=== PATIENT | male | born 1950 | race Caucasian/White ===

== ENCOUNTER 2018-04-21 15:52 | Inpatient (IN) | payer OTHER ==
[~2018-04-21] VITALS: Ht 180.3 cm; Wt 72.6 kg
[2018-04-21] MEDS ORDERED: POLY17PO4 PO (16:09)
[2018-04-21] MEDS ORDERED: FINA5TAB11 PO (16:09)
[2018-04-21] MEDS ORDERED: TAMS-3 PO (16:09)
[2018-04-21] MEDS ORDERED: CHOL10005 PO (16:09)
[2018-04-21] MEDS ORDERED: MULT1TAB73 PO (16:09)
[2018-04-21 16:17] LABS: BASOPHILS % (AUTO) 0.2 % (0.0-2.0); HEMATOCRIT 48.7 % (36.7-47.1); HEMOGLOBIN 16.5 g/dL (12.5-16.3); LYMPHOCYTES # (AUTO) 0.2 K/uL (20.0-40.0); LYMPHOCYTES % (AUTO) 3.4 % (20.5-51.5); MEAN CORPUSCULAR HGB CONC 34 g/dL (32.5-36.3); MEAN CORPUSCULAR VOLUME 91.2 fL (73.0-96.2); MONOCYTES % (AUTO) 0.6 % (0.0-11.0); NEUTROPHILS # (AUTO) 6.7 K/uL (1.8-8.9); NEUTROPHILS % (AUTO) 95.8 % (38.5-71.5); PLATELET COUNT (AUTO) 184 K/uL (152-348); RED BLOOD CELL COUNT(AUTO) 5.34 MIL/uL (4.06-5.63)
[2018-04-21 16:22] LABS: POTASSIUM 3.8 mmol/L (3.5-5.1)
[2018-04-21 16:36] LABS: *BILIRUBIN,URIN NEGATIVE (NEGATIVE); *BLOOD, URINE 3+ (NEGATIVE); *COLOR,URINE RED (YELLOW); *KETONES,URINE 1+ (NEGATIVE); *PROTEIN,URINE 3+ (NEGATIVE); *UROBILINOGEN,URINE 0.2 E.U./dl (NORMAL); LEUKOCYTE ESTERASE ,URINE TRACE (NEGATIVE); NITRITE, URINE NEGATIVE (NEGATIVE); UGLUCOSE NEGATIVE (NEGATIVE)
[2018-04-21 16:38] LABS: *CLARITY,URINE BLOODY (CLEAR)
[2018-04-21 16:42] LABS: RBC,URINE TNTC /HPF (0-3)
[2018-04-21 16:43] LABS: MUCUS,URINE MODERATE /LPF (0-FEW)
--- NOTE | 2018-04-21 16:50 | NUR ---
spoke with DYLLAN Tolentino via telephone and pt to be admitted to m/s.
--- NOTE | 2018-04-21 17:17 | NUR ---
Pt trans to m/s floor, NAD noted.
--- NOTE | 2018-04-21 17:30 | NUR ---
ADMITTED FROM [facility] VIA ER A 68 YO MALE STATUS POST TURP. ADM DX HEMATURIA. AWAKE ALERT AND ORIENTED X3 NO SS OF PAIN OR DISTRESS WITH 3 WAY JENSEN CATHETER AND CONTINUOUS BLADDER IRRIGATION ON GOING DRAINING BRIGHT RED WITH NO CLOTS NOTED. ROUTINE ADM ASSESSMENT INITIATED, DYLLAN HIGUERA NOTIFIED OF ADMISSION WITH ORDERS
[2018-04-21] MEDS ORDERED: ACETAMINOPHEN 325 MG TABLET PO PRN (18:15)
[2018-04-21] MEDS ORDERED: ZOLPIDEM 5 MG TABLET PO PRN (18:15)
[2018-04-21] MEDS ORDERED: ONDANSETRON 4 MG/2 ML VIAL IV PRN (18:15)
[2018-04-21] MEDS ORDERED: HYDROCODONE/APAP 5-325MG TABLET PO PRN (18:15)
[2018-04-21 20:00] VITALS: BP 119/62
[2018-04-21] MEDS ORDERED: CEFTRIAXONE 1 G in IV DEXTROSE 5% 50 ML IV SCH (21:00)
[2018-04-21] MEDS ORDERED: CEFTRIAXONE 1 G VIAL ONE (22:08)
--- NOTE | 2018-04-21 22:55 | NUR ---
Received Pt care, A+Ox3, VS stable. Remains on continuous bladder irrigation, NS 3L bag replaced and infusing. Urine appears lorelei in color, Pt denies any discomfort or pain. Saline lock noted to (L) hand, line patent. Compliant and cooperative, in no acute distress at this time, will continue to monitor.
[2018-04-22 05:03] VITALS: BP 98/66
--- NOTE | 2018-04-22 05:51 | NUR ---
Remains on continuous bladder irrigation, output 4L total for the shift, urine now light pink in color, no clots noted. Denies pain, VS stable, breathing even and unlabored. F/C in place and draining freely. UA positive for UTI, Rocephin 1G IV started at 2200. 18g IV to (L) hand intact and patent, TKO. Right-sided weakness noted secondary to cerebral palsy, minimal assist required. In no acute physical distress. Care to be endorsed to day shift nurse.
[2018-04-22 06:38] LABS: CREATININE 0.8 mg/dL (0.6-1.3); MAGNESIUM 1.9 mg/dL (1.8-2.4); PHOSPHOROUS 3.4 mg/dL (2.5-4.9)
--- NOTE | 2018-04-22 07:30 | NUR ---
AWAKE ALERT AND ORIENTED X3 NO SS OF PAIN OR DISTRESS. CONTINUE WITH CBI URINE OUTPUT IS NOW VERY LIGHT PINK NO GROSSS HEMATURIA OR CLOTS. AFEBRILE
[2018-04-22 07:59] LABS: BASOPHILS % (AUTO) 0.3 % (0.0-2.0); HEMATOCRIT 43.3 % (36.7-47.1); HEMOGLOBIN 14.7 g/dL (12.5-16.3); LYMPHOCYTES # (AUTO) 1.1 K/uL (20.0-40.0); LYMPHOCYTES % (AUTO) 10.1 % (20.5-51.5); MEAN CORPUSCULAR HEMOGLOBIN 30.9 uug (23.8-33.4); MEAN CORPUSCULAR HGB CONC 34 g/dL (32.5-36.3); MEAN CORPUSCULAR VOLUME 90.9 fL (73.0-96.2); MONOCYTES # (AUTO) 0.7 K/uL (2.0-10.0); MONOCYTES % (AUTO) 6.4 % (0.0-11.0); NEUTROPHILS # (AUTO) 9.3 K/uL (1.8-8.9); NEUTROPHILS % (AUTO) 83.2 % (38.5-71.5); PLATELET COUNT (AUTO) 182 K/uL (152-348); RED BLOOD CELL COUNT(AUTO) 4.77 MIL/uL (4.06-5.63); WHITE BLOOD COUNT (AUTO) 11.1 K/uL (3.6-10.2)
--- NOTE | 2018-04-22 08:46 | NUR ---
SEEN BY DR KOTHARI UROLOGIST SAID OK TO BE DISCHARGE IF OK WITH HOSPITALIST
[2018-04-22] MEDS ORDERED: FINASTERIDE 5 MG TABLET PO SCH (09:00)
[2018-04-22] MEDS ORDERED: MIRALAX 17 GM POWD.PACK PO SCH (09:00)
[2018-04-22] MEDS ORDERED: CHOLECALCIFEROL 1,000 UNIT TABLET PO SCH (09:00)
[2018-04-22] MEDS ORDERED: TAMSULOSIN HCL 0.4 MG CAP.SR.24H PO SCH (09:00)
[2018-04-22] MEDS ORDERED: MULTIVITAMINS,THERAPEUTIC TABLET PO SCH (09:00)
[2018-04-22] MEDS ORDERED: CEPH-570 PO (10:34)
[2018-04-22 11:44] VITALS: BP 99/57
--- NOTE | 2018-04-22 14:05 | NUR ---
DISCHARGED HOME STABLE VIA UBER WITH FOLLOW-UP INSTRUCTION WITH DR KOTHARI ON THURSDAY
== END 2018-04-22 14:10 | disposition home or self-care (01) | DRG 921 ==
LOC: ER 15:54 → MED 17:12
PROVIDERS: ADMIT Nurse Practitioner Acute Care; ATTEND Nurse Practitioner Acute Care
DX: N99.820 Postprocedural hemorrhage of a genitourinary system organ or structure following a genitourinary system procedure (principal); Y92.89 Other specified places as the place of occurrence of the external cause; R31.9 Hematuria, unspecified; Y83.8 Other surgical procedures as the cause of abnormal reaction of the patient, or of later complication, without mention of misadventure at the time of the procedure; Y73.3 Surgical instruments, materials and gastroenterology and urology devices (including sutures) associated with adverse incidents; G80.8 Other cerebral palsy; G40.909 Epilepsy, unspecified, not intractable, without status epilepticus; N40.0 Benign prostatic hyperplasia without lower urinary tract symptoms
CPT/HCPCS: 36415; 83735; 84100; 85025; 87086; A4663; J0696; J7030; J7060